=== PATIENT | female | born 1935 | race Caucasian/White ===

== ENCOUNTER 2018-04-07 10:40 | Emergency (ER) | payer MEDICARE, BC ==
[2018-04-07 12:15] VITALS: BP 124/58
--- NOTE | 2018-04-07 12:54 | UC ---
General HPI - HPI Summary HPI Summary: 1. slipped and caught self on sunday but injured her L knee then slipped and fell on buttock plus injured her L knee more. 2. rash on both thighs yesterday. today, more spots(R shoulder, L wrist, R buttock/thigh and upper lip). spot on L thigh is streaking. admits to gardening. no hx tick bites. 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 Pain Intensity: 7 Aggravating: knee worse by movement Associated Signs & Symptoms: Negative: Fever - Allergy/Home Medications Allergies/Adverse Reactions: Allergies Allergy/AdvReac Type Severity Reaction Status Date / Time imiquimod [From Kamara] Allergy Rash Verified 04/07/18 12:13 Home Medications: Home Medications Eye Drops For Dry Eyes 1 dose .ROUTE ONCE 04/07/18 [History Confirmed 04/07/18] busPIRone TAB* [Buspar TAB*] 1 tab PO DAILY 04/07/18 [History Confirmed 04/07/18 ] PMH/Surg Hx/FS Hx/Imm Hx - Additional Past Medical History Additional PMH: dry eye Psychological History: Anxiety - Surgical History Surgery Procedure, Year, and Place: hysterectomy - Family History Known Family History: Positive: Unknown - Social History Occupation: Retired Lives: Alone Alcohol Use: Daily Alcohol Amount: 1 glass of wine Substance Use Type: None Smoking Status (MU): Former Smoker - Immunization History Vaccination Up to Date: Yes Review of Systems Constitutional: Negative Skin: Rash Eyes: Negative ENT: Negative Respiratory: Negative Cardiovascular: Negative Gastrointestinal: Negative Genitourinary: Negative Motor: Negative Neurovascular: Negative Musculoskeletal: Other: - L knee pain Neurological: Negative Psychological: Negative Is Patient Immunocompromised?: No All Other Systems Reviewed And Are Negative: Yes Physical Exam Triage Information Reviewed: Yes Appearance: Well-Appearing Vital Signs: Initial Vital Signs Temp 99.7 F 04/07/18 12:03 Pulse 74 04/07/18 12:03 Resp 16 04/07/18 12:03 BP 124/58 04/07/18 12:03 Pulse Ox 98 04/07/18 12:03 Vital Signs Reviewed: Yes Eyes: Positive: Conjunctiva Clear ENT: Positive: Pharynx normal, TMs normal. Negative: Nasal congestion, Nasal drainage Neck: Positive: Supple, Nontender, No Lymphadenopathy Respiratory: Positive: Lungs clear, Normal breath sounds Cardiovascular: Positive: RRR, No Murmur Abdomen Description: Positive: Nontender, No Organomegaly, Soft Bowel Sounds: Positive: Present Musculoskeletal: Positive: Other: - Head, neck and back are all nontender and atraumatic. Left lower extremity hip ankle and foot are atraumatic. Left knee has mild swelling to the lateral aspect along with tenderness but no gross laxity or instability. Active and passive range of motion are intact. There is a small bruise to the left elbow otherwise both upper and right lower extremities are atraumatic with full sensorivascular motor function. Neurological: Positive: Alert Psychological: Positive: Age Appropriate Behavior Skin Exam: Normal, Other - Patient has somewhat circular areas of red rash. The area just above the left knee looks a little vesicular and has some mild streaking. There is a spot on the left dorsal wrist that looks the same. Rest of the areas including the right upper lip, right thigh, right upper arm and right hip area are all pink and mildly raised. None have a bull's-eye appearance. Diagnostics - Radiology No standard instances Radiology Interpretation Completed By: Radiologist - L knee=IMPRESSION: JOINT EFFUSION, NO FRACTURE IS SEEN. Course/Dx - Course Course Of Treatment: Hx and PE d/w Dr Harding who examed pt as well in regards to rash. we agree to check Lyme titer and cbc with f/u pcp tomorrow plus go to ER if worsening. will tx with doxycycline as well. knee effusion but no fx or dislocation. will order walker and ortho f/u. joint not unstable thus will avoid any splint given overlying rash to this joint with streaking. - Differential Dx - Multi-Symptom Provider Diagnoses: Acute pain L knee with effusion. Acute rash with secondary lymphangitis over L knee. Discharge - Sign-Out/Discharge Documenting (check all that apply): Patient Departure - Discharge Plan Condition: Stable Disposition: HOME Prescriptions: DOXYcycline CAP(*) [DOXYcycline 100MG CAP(*)] 100 mg PO BID 10 Days #20 cap Patient Education Materials: Acute Rash (ED), Lymphangitis (ED), Swollen Joint (ED) Referrals: Angelic Dewey [Primary Care Provider] - 1 Day Jacobo Gurrola MD [Medical Doctor] - As Soon As Possible Additional Instructions: FOLLOW UP WITH YOUR PRIMARY CARE-[facility] TOMORROW FOR A RECHECK OF THE RASH. GO TO ER FOR ANY WORSENING OF THE RASH OR FEVER. CALL DR GURROLA -ORTHOPEDICS TOMORROW AND FOLLOW UP SOON POSSIBLE. USE THE WALKER AT ALL TIMES UNTIL CLEARED. TAKE A PROBIOTIC DAILY WHILE ON THE ANTIBIOTICS. - Billing Disposition and Condition Condition: STABLE Disposition: Home
--- NOTE | 2018-04-07 13:29 | RAD ---
INDICATION: Left knee injury. TECHNIQUE: 4 views of the left knee were obtained. FINDINGS: There is medial soft tissue swelling. The bones are normal alignment. There is a moderate joint effusion present. No fracture is seen. Joint spaces appear maintained. IMPRESSION: JOINT EFFUSION, NO FRACTURE IS SEEN.
[2018-04-07] MEDS ORDERED: DOXYcycline CAP(*) 100 MG PO ONE (14:21)
[2018-04-08 10:50] LABS: Hematocrit 41 % (35-47); Hemoglobin 14.1 g/dl (12.0-16.0); Mean Corpuscular HGB Conc 35 g/dl (31-36); Mean Corpuscular Hemoglobin 32 pg (27-31); Mean Corpuscular Volume 93 fL (80-97); Mean Platelet Volume 10.6 um3 (7.4-10.4); Platelet Count 151 10^3/ul (150-450); Red Blood Count 4.35 10^6/ul (4.00-5.40); Red Cell Distribution Width 13 % (10.5-15); White Blood Count 10.5 10^3/ul (3.5-10.8)
[2018-04-08 11:31] LABS: ABS Basophils 0 10^3/ul (0-0.2); ABS Neutrophils 6.2 10^3/ul (1.5-7.7); ABS Neutrophils 8.1 10^3/ul (1.5-7.7); Monocytes % 8 % (0-7)
== END 2018-04-07 14:37 | disposition home or self-care (01) ==
LOC: UCCORT 10:40
DX: M25.562 Pain in left knee (principal); M25.462 Effusion, left knee; W01.0XXA Fall on same level from slipping, tripping and stumbling without subsequent striking against object, initial encounter; Y93.9 Activity, unspecified; Y92.9 Unspecified place or not applicable; R21 Rash and other nonspecific skin eruption; I89.1 Lymphangitis; Z88.8 Allergy status to other drugs, medicaments and biological substances; F41.9 Anxiety disorder, unspecified; Z87.891 Personal history of nicotine dependence
CPT/HCPCS: 36415; 85025; 85060; 86617; 99213; A9270-GY; G0463

== ENCOUNTER 2018-04-25 12:50 | Emergency (ER) | payer MEDICARE, BC ==
--- OUTSIDE RECORDS SUMMARY | 2018-04-25 13:06 | XMS REPORT ---
:1935 External Reference #:[id number] Author Organization [id number] Address [address] [place] [address] [place] [address] Phone [phone] Care Team Providers Name Role Phone JaviddorisAngelic FNP Primary Care Physician Unavailable Payers Type Date Identification Numbers Payment Provider Subscriber Medicare Primary Effective: Policy Number: Medicare Bree Powers 1998 [id number] PayID: [id number] [address] [place] [address] Medigap Part B Expires: 2017 Policy Number: [id number] BS Of JUNIOR Powers PayID: [id number] [address] [place] [address] Medigap Part B Effective: 2018 Policy Number: Tiffanie Powers [id number] PayID: [id number] [address] [address] [place] [address] Problems Description No Information Family History Date Family Member(s) Problem(s) Comments Father Stroke Father Hypertension Mother Hypertension Mother maternal grandmother-rectal cancer Siblings sisters-both with cancer Social History Type Date Description Comments Marital Status Lives With Alone Occupation Retired ETOH Use Drinks 1 Alcoholic Beverage Per Day wine Smoking Patient is a former smoker Recreational Drug Use Denies Drug Use Daily Caffeine Consumes on average 1 cup of regular coffee per day Daily Caffeine Consumes on average 8oz of iced tea per day Daily Caffeine consumes chocolate occasionally Exercise Type/Frequency Exercises regularly walking and yoga Allergies, Adverse Reactions, Alerts Date Description Reaction Status Severity Comments 04/08/2018 Aldara active rash Medications Medication Date Status Form Strength Qnty SIG Indications Ordering Provider Doxycycline Active Capsules 100mg one tablet Unknown Hyclate 000 twice daily for 10 days started 04/07/18 Buspirone HCL Active Tablets 5mg 1 by mouth Unknown 000 daily. Restasis Active Emulsion 0.05% instill 1 Unknown 000 drop in each eye two times daily Avenova Active Solution 0.01% sprays Unknown 000 onto cotton and wipes both lids daily. Systane Active Solution 0.4-0.3% apply Unknown 000 twice daily as needed for dry eyes Multi Vitamin Active Tablets 1 by mouth Unknown Daily 000 every day Bone Strength Active Tablet 1 tab by Unknown Calcium 000 mouth twice daily. Reuma-Art Active Tablets 1 tab by Unknown X-Strenghth For 000 mouth Arthritis twice daily. Probiotic Active Capsules 1 by mouth Unknown 000 every day Biotin Active Tablets 1000mcg 1 tab by Unknown 000 mouth daily Ocuvite Adult Active Capsules 1 by mouth Unknown Formula 000 every day Electro Mix Active 1 drink Unknown Potassium,Magne 000 packet per sium,Calcium day Tumeric/Curcumi Active 750mg 1 by mouth Unknown n 000 daily. [place]-3 Active Capsules 1 cap by Unknown 000 mouth daily Vitamin D-3 Active Tablets 5000Unit take 1 tab Unknown 000 by mouth daily Restfully Sleep Active Tablets 25mg 1 by mouth Unknown 000 at bedtime. Vital Signs Date Vital Result Comment 04/12/2018 Heart Rate 66 /min BP Systolic 114 mmHg BP Diastolic 72 mmHg Respiratory Rate 16 /min Pain Level 1 O2 % BldC Oximetry 98 % 04/08/2018 Heart Rate 75 /min BP Systolic 110 mmHg BP Diastolic 68 mmHg Respiratory Rate 16 /min Pain Level 0 at rest O2 % BldC Oximetry 98 % Results Description No Information Procedures Description No Information Encounters Type Date Location Provider CPT E/M Dx Office Visit 05/28/2012 Lars Dc M.D. 25505 780.4 11:00a [facility] 300.00 Plan of Care Future Appointment(s):05/06/2018 10:30 am - Jacobo Gurrola MD at [facility] AT Mvsepdpg87/17/2018 - Jacobo Gurrola, [id number] Oth spon disrupt of posterior cruciate ligament of left kneeNew Therapy:Physical TherapyFollow up:Follow up: 4 weeks
--- OUTSIDE RECORDS SUMMARY | 2018-04-25 13:06 | XMS REPORT ---
:1935 External Reference #:[id number] Author Organization [facility] Address [address] [address] Phone [phone] Care Team Providers Name Role Phone Carola Deweyricia, ICT BUSINESS ANALYST Care Team Information Pea Viner Mechanic Unavailable Payers Type Date Identification Numbers Payment Provider Subscriber Medicare Primary Policy Number: [id number] Medicare Bree Powers PayID: [id number] [address] [place] [address] [facility] Part B Effective: Policy Number: [facility] Janelle Powers 2012 [id number] PayID: [id number] [address] [address] [place] [phone] Medigap Part B Expires: 2012 Policy Number: [facility] Commercial Bree Powers [id number] Group Number: [id number] [address] [address] PayID: [id number] [place] [phone] Problems Date Description Provider Status Onset: 02/19/2017 Insomnia Digiovanna, Angelic, ICT BUSINESS ANALYST Active Onset: 02/19/2017 Flatulence, eructation and gas pain Digiovanna, Angelic, ICT BUSINESS ANALYST Active Onset: 02/19/2017 History of malignant neoplasm of Digiovanna, Angelic, ICT BUSINESS ANALYST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 Onset: 02/19/2017 Anxiety state Digiovanna, Angelic, ICT BUSINESS ANALYST Active Onset: 02/19/2017 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 Latham Family History Date Family Member(s) Problem(s) Comments General Cancer, Bladder sister #2, dec General Cancer, Breast sister #1 General Cancer, Prostate brother General Tuberculosis sister #1 Social History Type Date Description Comments Marital Status ETOH Use Currently consumes alcohol most days Smoking Patient has never smoked Allergies, Adverse Reactions, Alerts Date Description Reaction Status Severity Comments 02/19/2017 Aldara rash active Medications Medication Date Status Form Strength Qnty SIG Indications Ordering Provider Aleve Active Capsules 220mg 120caps 1 by Digiovanna 018 mouth q12 , hours as Angelic, needed ICT BUSINESS ANALYST for pain Systane Active Solution 0.4-0.3% 10ml Apply Digiovanna 018 twice , daily as Angelic, needed ICT BUSINESS ANALYST for dry eyes Tumeric Active 750mg 1 po qd Digiovanna 018 , Angelic, ICT BUSINESS ANALYST Lubricant Eye Active Solution 0.4-0.3% 10ml use 1 Digiovanna Drops 018 drop both , eyes as Angelic, needed ICT BUSINESS ANALYST otc Restasis Active Emulsion 0.05% 1 drop in Unknown 000 each eye twice a day Multi For Her Active Capsules 1 by Unknown 000 mouth every day Biotin Active Capsules 1mg 1 by Unknown 000 mouth every day Vitamin D3 Active Tablets 1 tab by Unknown 000 mouth every day with meal with meat/fat/ oil with dinner Avenova Active Solution 0.01% one spray Unknown 000 onto cotton and wipe both lids daily Calcium Active Tabs 1 tab by Unknown Bonehealth 000 mouth twice daily Arthritis Active Tablets ER 650mg 1 tab by Unknown Pain Reliever 000 mouth twice daily Probiotic Active Capsules 1 by Unknown 000 mouth every day Ocuvite Adult Active Capsules 1 by Unknown Formula 000 mouth every day [place]-3 Active Capsules 500mg 1 cap by Unknown 000 mouth daily Restfully Active Tablets 25mg 1 tab by Unknown Sleep 000 mouth at bedtime Buspirone HCL Active Tablets 5mg 60tabs Take 1 F41.1 Digiovanna 000 Tablet By , Mouth Angelic, Twice ICT BUSINESS ANALYST Daily Omeprazole Hx Capsules DR 20mg 30caps 1 by R14.1 Digiovanna 017 - mouth , every day Angelic, 018 for 2 ICT BUSINESS ANALYST weeks then as needed R05 Antioxidant Formula - Hx Capsules Unknown 04/08/2018 Zinc - Hx Lozenges Unknown 03/19/2018 Fish Oil - Hx Capsules 500mg 1 by mouth Unknown 04/08/2018 every day Meclizine HCL - Hx Tablets 25mg 1 by mouth Unknown 03/19/2018 three times a day as needed Doxycycline Hyclate - Hx Capsules 100mg 1 by mouth Unknown 04/23/2018 twice a day x 10 days--started 04/07/18--given by Urgent Care Immunizations CPT Code Status Date Vaccine Reaction Lot # [id number] Given 06/01/2017 Flu Vaccine NOS 01695 Given 09/02/2015 Pneumococcal 23 Immunization Adult Or Immunosuppressed Patient 04861 Given 03/01/2000 Pneumococcal 23 Immunization Adult Or OLD RECORDS Immunosuppressed Patient 94071 Refused 03/19/2018 Prevnar 13 Pneumococal Conjugate Vaccine Vital Signs Date Vital Result Comment 04/23/2018 Body Temperature 99.5 F tympanic Weight 95.31 lb Heart Rate 88 /min BP Systolic 94 mmHg BP Diastolic 58 mmHg Respiratory Rate 18 /min Height 63.5 inches 5'3.50" 03/19/18 BMI (Body Mass Index) 16.6 kg/m2 04/09/2018 Body Temperature 97.2 F Weight 96.00 lb Heart Rate 60 /min BP Systolic 122 mmHg BP Diastolic 68 mmHg Height 63.5 inches 5'3.50" 03/19/18 O2 % BldC Oximetry 96 % BMI (Body Mass Index) 16.7 kg/m2 04/08/2018 Body Temperature 99.1 F tympanic Weight 96.38 lb Heart Rate 76 /min BP Systolic 118 mmHg BP Diastolic 64 mmHg Respiratory Rate 16 /min Height 63.5 inches 5'3.50" 03/19/18 BMI (Body Mass Index) 16.8 kg/m2 03/19/2018 Weight 97.00 lb Heart Rate 68 /min BP Systolic 102 mmHg BP Diastolic 58 mmHg Respiratory Rate 18 /min Height 63.5 inches 5'3.50" 03/19/18 BMI (Body Mass Index) 16.9 kg/m2 02/28/2017 Weight 97.00 lb Heart Rate 70 /min BP Systolic 118 mmHg BP Diastolic 72 mmHg Respiratory Rate 13 /min Height 63.5 inches 5'3.50" (02/19/17) BMI (Body Mass Index) 16.9 kg/m2 02/19/2017 Weight 98.00 lb Heart Rate 76 /min BP Systolic 120 mmHg BP Diastolic 64 mmHg Respiratory Rate 18 /min Height 63.5 inches 5'3.50" (02/19/17) BMI (Body Mass Index) 17.1 kg/m2 Results Test Date Test Result H/L Range Note Wound Culture-RL 04/09/2018 Wound Culture SEE NOTE 1 Viral Culture -RL 04/09/2018 Viral Culture SEE NOTE 2 Laboratory test 04/09/2018 Viral Culture SPECIMEN DESCRI> 3 finding Laboratory test 04/09/2018 HSV/VZV Molecular SPECIMEN DESCRI> 4 finding Wound Culture-RL 04/08/2018 Wound Culture SEE NOTE 5 Laboratory test 03/15/2017 Fit (medicare) Negative Negative finding 1 SPECIMEN DESCRIPTION TUBE SITE SPECIAL REQUESTS NONE GRAM STAIN NO WHITE BLOOD CELLS NO BACTERIA CULTURE RESULTS NO GROWTH REPORT STATUS FINAL 04/11/2018 Unless otherwise specified, testing performed by [facility] [address] [place] [address] 2 SPECIMEN DESCRIPTION TUBE SITE SPECIAL REQUESTS NONE CULTURE RESULTS DUPLICATE ORDER. TEST CANCELLED SEE [facility] [id number] PER [place]LET REPORT STATUS FINAL 04/11/2018 Unless otherwise specified, testing performed by [facility] [place] [address] 3 SPECIMEN DESCRIPTION BOIL THIGH SPECIAL REQUESTS NONE CULTURE RESULTS TEST(S) PROCESSED UNDER NEW ENTRY SEE [facility] [id number] PER CHARLET AT 0933 ON [id number] 9 [id number] REPORT STATUS FINAL 04/10/2018 4 SPECIMEN DESCRIPTION BOIL THIGH SPECIAL REQUESTS NONE RESULT NEGATIVE FOR HERPES SIMPLEX VIRUS TYPES 1 AND 2 AND VARICELLA ZOSTER VIRUS DNA. REPORT STATUS FINAL 04/10/2018 5 SPECIMEN DESCRIPTION ABSCESS SPECIAL REQUESTS NONE GRAM STAIN RARE (<1/LPF) WHITE BLOOD CELLS NO BACTERIA CULTURE RESULTS NO GROWTH REPORT STATUS FINAL 04/10/2018 Unless otherwise specified, testing performed by [facility] [address] [place] [address] Procedures Date CPT Code Description Status Comment 08/27/2009 Bone Mineral Density Test Completed [place] 03/18/2002 Colonoscopy Completed Document: 03/18/02 - Colonoscopy Dr. Garcia - painful Encounters Type Date Location Provider CPT E/M Dx Office Visit 04/09/2018 10:30[place] [address] R21 Z68.1 Office Visit 04/08/2018 2:30p [facility] Digiovanna, Angelic, ICT BUSINESS ANALYST 82545 L13.9 Office Visit 03/19/2018 3:00p [facility] Digiovanna, Angelic, ICT BUSINESS ANALYST 68634 F41.1 E55.9 Z68.1 Office Visit 02/28/2017 2:45p [facility] Digiovanna, Angelic, ICT BUSINESS ANALYST 68609 F41.9 Office Visit 02/19/2017 2:00p [facility] Digiovanna, Angelic, ICT BUSINESS ANALYST G0439 Z00.00 G47.00 R14.1 R05 Z86.001 M81.0 Z85.828 F41.9 Z68.1 Plan of Care 04/23/2018 - Angelic Dewey, KODYM70.22 Olecranon bursitis, LEFT elbowComments:Avoid all pressure on L elbowMonitor symptoms and return immediately for any fever, redness or pain in area or if persistent swelling in 1-2 weeksDiscussed possible benefit of aspiration, declines for now.Follow up: PRN as above
--- OUTSIDE RECORDS SUMMARY | 2018-04-25 13:06 | XMS REPORT ---
:1935 External Reference #:[id number] Author Organization [facility] Address [address] [address] Phone [phone] Care Team Providers Name Role Phone Angelic Dewey NP Care Team Information Rig Builder Helper Unavailable Payers Type Date Identification Numbers Payment Provider Subscriber Medicare Primary Policy Number: [id number] Medicare Bree Powers PayID: [id number] [address] [place] [address] Medigap Part B Effective: Policy Number: [place] Janelle Powers 2012 [id number] PayID: [id number] [address] [address] [place] [address] Medigap Part B Expires: 2012 Policy Number: [facility] Janelle Powers [id number] Group Number: [id number] [address] [address] PayID: [id number] [place] [phone] Problems Date Description Provider Status Onset: 02/19/2017 Osteoporosis Angelic Dewey, ART OBJECTS SALESPERSON Active Onset: 02/19/2017 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CarolaAngelic, ART OBJECTS SALESPERSON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 Onset: 02/19/2017 Anxiety state Abad Deweyia, ART OBJECTS SALESPERSON Active Onset: 02/19/2017 History of malignant neoplasm of Digiovanna, Angelic, ART OBJECTS SALESPERSON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 Onset: 02/19/2017 Flatulence, eructation and gas pain Angelic Dewey, ART OBJECTS SALESPERSON Active Onset: 02/19/2017 Insomnia DigiovannaCarolaAngelic, ART OBJECTS SALESPERSON Active Family History Date Family Member(s) Problem(s) Comments [...] Indications Ordering Provider Aleve Active Capsules 220mg 120cap 1 by Digiovanna 018 s mouth q12 , hours as Angelic, needed ART OBJECTS SALESPERSON for pain Systane Active Solution 0.4-0.3% 10ml Apply Digiovanna 018 twice , daily as Angelic, needed ART OBJECTS SALESPERSON for dry eyes Tumeric Active 750mg 1 po qd Digiovanna 018 , Angelic, ART OBJECTS SALESPERSON Lubricant Eye Active Solution 0.4-0.3% 10ml use 1 Digiovanna Drops 018 drop both , eyes as Angelic, needed ART OBJECTS SALESPERSON otc Restasis Active Emulsion 0.05% 1 drop in Unknown 000 each eye twice a day Multi For Her Active Capsules 1 by Unknown 000 mouth every day Biotin Active Capsules 1mg 1 by Unknown 000 mouth every day Vitamin D3 Active Tablets 1 tab by Unknown 000 mouth every day with meal with meat/fat/ oil with dinner Buspirone HCL Active Tablets 5mg 60tabs Take 1 F41.1 Digiovanna 000 Tablet By , Mouth Angelic, Twice ART OBJECTS SALESPERSON Daily Doxycycline Active Capsules 100mg 1 by Unknown Hyclate 000 mouth twice a day x 10 days--sta rted 04/07/18-- given by Urgent Care Avenova Active Solution 0.01% one spray Unknown 000 onto cotton and wipe both lids daily Calcium Active Tabs 1 tab by Unknown Bonehealth 000 mouth twice daily Arthritis Pain Active Tablets ER 650mg 1 tab by Unknown Reliever 000 mouth twice daily Probiotic Active Capsules 1 by Unknown 000 mouth every day Ocuvite Adult Active Capsules 1 by Unknown Formula 000 mouth every day [place]-3 Active Capsules 500mg 1 cap by Unknown 000 mouth daily Restfully Active Tablets 25mg 1 tab by Unknown Sleep 000 mouth at bedtime Omeprazole Hx Capsules DR 20mg 30caps 1 by R14.1 Digiovanna 017 - mouth , every day Angelic, 018 for 2 ART OBJECTS SALESPERSON weeks then as needed R05 Antioxidant Formula - Hx Capsules Unknown 04/08/2018 Zinc - Hx Lozenges Unknown 03/19/2018 Fish Oil - Hx Capsules 500mg 1 by mouth Unknown 04/08/2018 every day Meclizine HCL - Hx Tablets 25mg 1 by mouth Unknown 03/19/2018 three times a day as needed Immunizations CPT Code Status Date Vaccine Reaction Lot # [id number] Given 06/01/2017 Flu Vaccine NOS 39624 Given 09/02/2015 Pneumococcal 23 Immunization Adult Or Immunosuppressed Patient 14218 Given 03/01/2000 Pneumococcal 23 Immunization Adult Or OLD RECORDS Immunosuppressed Patient 53993 Refused 03/19/2018 Prevnar 13 Pneumococal Conjugate Vaccine Vital Signs Date Vital Result Comment 04/08/2018 Body Temperature 99.1 F tympanic Weight [...] Test Date Test Result H/L Range Note Laboratory test finding 03/15/2017 Fit (medicare) Negative Negative Procedures Date CPT Code Description Status Comment 08/27/2009 Bone Mineral Density Test Completed [place] 03/18/2002 Colonoscopy Completed Document: 03/18/02 - Colonoscopy Dr. Garcia - painful Encounters Type Date Location Provider CPT E/M Dx Office Visit 03/19/2018 3:00p [facility] Angelic Dewey, ART OBJECTS SALESPERSON 29912 F41.1 E55.9 Z68.1 Office Visit 02/28/2017 2:45p [facility] Angelic Dewey, ART OBJECTS SALESPERSON 36109 F41.9 Office Visit 02/19/2017 2:00p [facility] Angelic Dewey, ART OBJECTS SALESPERSON G0439 Z00.00 G47.00 R14.1 R05 Z86.001 M81.0 Z85.828 F41.9 Z68.1 Plan of Care Future Appointment(s):04/09/2018 10:30 am - Barrera Givens MD at [facility]/08/2018 - Agnelic Dewey NPL13.9 Bullous disorder, unspecifiedComments:Will notify of culture result.Continue Doxycycline for nowWill refer for ID consult.Referral:Barrera Givens MD, Infectious DiseasesFollow up:PRN pending culture result
--- OUTSIDE RECORDS SUMMARY | 2018-04-25 13:06 | XMS REPORT ---
:1935 External Reference #:[id number] Author Organization [employer] Address [address] [place] [address] [place] [address] Phone [phone] Care Team Providers Name Role Phone JaviddorisAngelic FNP Primary Care Physician Unavailable Payers Type Date Identification Numbers Payment Provider Subscriber Medicare Primary Effective: Policy Number: Medicare Bree Powers 2000 [id number] PayID: [id number] [address] [place] [address] Medigap Part B Expires: 2017 Policy Number: [id number] BS Of JUNIOR Powers PayID: [id number] [address] [address] Medigap Part B Effective: 2018 Policy Number: Tiffanie Powers [id number] PayID: [id number] [address] [address] [place] [address] Problems Description No Information Family History Date [...] 1 by mouth Unknown n 000 daily. [place]-3 Active Capsules 1 cap by Unknown 000 mouth daily Vitamin D-3 Active Tablets 5000Unit take 1 tab Unknown 000 by mouth daily Restfully Sleep Active Tablets 25mg 1 by mouth Unknown 000 at bedtime. Vital Signs Date Vital Result Comment 04/08/2018 Heart Rate 75 /min BP Systolic 110 mmHg BP Diastolic 68 mmHg Respiratory Rate 16 /min Pain Level 0 at rest O2 % BldC Oximetry 98 % Results Description No Information Procedures Description No Information Encounters Type Date Location Provider CPT E/M Dx Office Visit 04/08/2018 [facility] [place] [address] M23.92 1:15p [facility] [place] Office Visit 05/28/2012 [place]Harvinder Dc M.D. 30966 780.4 11:00a [facility] 300.00 Plan of Care 04/08/2018 - [place]o Gurrol[place], MDM23.92 Unspecified internal derangement of left kneeNew Xrays:MRI Knee Left W/OFollow up:Follow up: after testing is completed
--- OUTSIDE RECORDS SUMMARY | 2018-04-25 13:06 | XMS REPORT ---
:1935 External Reference #:[id number] Author Organization [facility] Address [address] [address] Phone [phone] Care Team Providers Name Role Phone Angelic Dewey, [employer] Care Team Information Dietary Service Aide Unavailable Payers Type Date Identification Numbers Payment Provider Subscriber Medicare Primary Policy Number: [id number] Medicare Bree Powers PayID: [id number] [address] [place] [address] [facility] Part B Effective: Policy Number: [facility] Janelle Powers 2012 [id number] PayID: [id number] [address] [address] [place] [address] Medigap Part B Expires: 2012 Policy Number: [facility] Commercial Bree Powers [id number] Group Number: [id number] [address] [address] PayID: [id number] [place] [address] Problems Date Description Provider Status Onset: 02/19/2017 Osteoporosis Carola Deweyricia, [employer] Active Onset: 02/19/2017 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, Angelic, [employer]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 Onset: 02/19/2017 Anxiety state Carola Deweyricia, [employer] Active Onset: 02/19/2017 History of malignant neoplasm of Digiovanna, Angelic, [employer]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 Onset: 02/19/2017 Flatulence, eructation and gas pain Digiovanna, Angelic, [employer] Active Onset: 02/19/2017 Insomnia Digiovanna, Angelic, [employer] Active Family History Date Family Member(s) Problem(s) [...] mouth q12 , hours as Angelic, needed [employer] for pain Systane Active Solution 0.4-0.3% 10ml Apply Digiovanna 018 twice , daily as Angelic, needed [employer] for dry eyes Tumeric Active 750mg 1 po qd Digiovanna 018 , Angelic, [employer] Lubricant Eye Active Solution 0.4-0.3% 10ml use 1 Digiovanna Drops 018 drop both , eyes as Angelic, needed [employer] otc Restasis Active Emulsion 0.05% 1 drop [...] 000 Tablet By , Mouth Angelic, Twice [employer] Daily Doxycycline Active Capsules 100mg 1 by [...] by Unknown Formula 000 mouth every day [place]-3 Active Capsules 500mg 1 cap by Unknown 000 mouth daily Restfully Active Tablets 25mg 1 tab by Unknown Sleep 000 mouth at bedtime Omeprazole Hx Capsules DR 20mg 30caps 1 by R14.1 Digiovanna 017 - mouth , every day Angelic, 018 for 2 [employer] weeks then as needed R05 Antioxidant Formula - Hx Capsules Unknown 04/08/2018 Zinc - Hx Lozenges Unknown 03/19/2018 Fish Oil - Hx Capsules 500mg 1 by mouth Unknown 04/08/2018 every day Meclizine HCL - Hx Tablets 25mg 1 by mouth Unknown 03/19/2018 three times a day as needed Immunizations CPT Code Status Date Vaccine Reaction Lot # [id number] Given 06/01/2017 Flu Vaccine NOS 15120 Given 09/02/2015 Pneumococcal 23 Immunization Adult Or Immunosuppressed Patient 25287 Given 03/01/2000 Pneumococcal 23 Immunization Adult Or OLD RECORDS Immunosuppressed Patient 72286 Refused 03/19/2018 Prevnar 13 Pneumococal Conjugate Vaccine Vital Signs Date Vital Result Comment 04/09/2018 Body Temperature 97.2 F Weight 96.00 [...] 04/11/2018 Unless otherwise specified, testing performed by [facility] [place] [address] 2 SPECIMEN DESCRIPTION TUBE SITE SPECIAL REQUESTS NONE CULTURE RESULTS DUPLICATE ORDER. TEST CANCELLED SEE [facility] [id number] PER JENNIFER REPORT STATUS FINAL 04/11/2018 Unless otherwise specified, testing performed by [facility] [place] [address] 3 SPECIMEN DESCRIPTION BOIL THIGH SPECIAL REQUESTS NONE CULTURE RESULTS TEST(S) PROCESSED UNDER NEW ENTRY SEE [facility] [id number] PER JENNIFER AT 0933 ON [id number] [phone] REPORT STATUS FINAL 04/10/2018 4 SPECIMEN DESCRIPTION BOIL THIGH SPECIAL REQUESTS NONE RESULT NEGATIVE FOR HERPES SIMPLEX VIRUS TYPES 1 AND 2 AND VARICELLA ZOSTER VIRUS DNA. REPORT STATUS FINAL 04/10/2018 5 SPECIMEN DESCRIPTION ABSCESS SPECIAL REQUESTS NONE GRAM STAIN RARE (<1/LPF) WHITE BLOOD CELLS NO BACTERIA CULTURE RESULTS NO GROWTH REPORT STATUS FINAL 04/10/2018 Unless otherwise specified, testing performed by [facility] [place] [address] Procedures Date CPT Code Description Status Comment 08/27/2009 Bone Mineral Density Test Completed [place] 03/18/2002 Colonoscopy Completed Document: 03/18/02 - Colonoscopy Dr. Garcia - painful Encounters Type Date Location Provider CPT E/M Dx Office Visit 04/09/2018 10:[place] [address] R21 Z68.1 Office Visit 04/08/2018 2:30p [facility] Digiovanna, Angelic, [employer] 52310 L13.9 Office Visit 03/19/2018 3:00p [facility] Digiovanna, Angelic, [employer] 93166 F41.1 E55.9 Z68.1 Office Visit 02/28/2017 2:45p [facility] Digiovanna, Angelic, [employer] 48136 F41.9 Office Visit 02/19/2017 2:00p [facility] Digiovanna, Angelic, [employer] G0439 Z00.00 G47.00 R14.1 R05 Z86.001 M81.0 Z85.828 F41.9 Z68.1 Plan of Care 04/09/2018 - Barrera Givens V, MDR21 Rash and other nonspecific skin eruptionNew Labs:Isabela Screen With Reflex-FCMGCBC with Auto Diff- fcmgComprehensive Met Panel-FCMGCRP (C-Reactive)EsrLyme Igm/Igg AB -RLAerobic Blood Culture-RLZ68.1 Body mass index (BMI) 19.9 or less, adultAllComments: Patient voices understanding of meds and disease processes
[2018-04-25 13:52] VITALS: BP 132/64
--- NOTE | 2018-04-25 14:01 | UC ---
Upper Extremity HPI - HPI Summary HPI Summary: 83 year old female presents for non-traumatic left olecranon bursitis. States she was seen by her PCP on 04/23/2018 for same and had decided on conservative management of symptoms. She called her PCP office today with concern that her elbow was a little more red than before and she was advised to go to ED however elected to come to as she had been evaluated at this facility on 04/07/2018 for left knee pain s/p fall. Denies fever, chills, injury to elbow at time of fall, tenderness to bursa, or pain with ROM. She does note that 2-3 days ago she also developed mild pain and swelling in her left great toe. No history of gout. She also notes that she has been evaluated recently for several non- specific skin eruptions of undetermined etiology including one to the posterior upper left arm near near the elbow however states that this is almost completely healed with out evidence of infection. - History of Current Complaint Stated Complaint: LEFT ELBOW COMPLAINT Time Seen by Provider: 04/25/18 13:19 Hx Obtained From: Patient - See HPI ?: No Onset/Duration: Gradual Onset, Lasting Days Severity Initially: Mild Severity Currently: Mild Aggravating Factor(s): Nothing Alleviating Factor(s): Nothing Associated Signs And Symptoms: Positive: Swelling, Redness. Negative: Bruising , Fever, Weakness, Numbness/Tingling - Risk Factors Septic Arthritis Risk Factor: Negative - Allergies/Home Medications Allergies/Adverse Reactions: Allergies Allergy/AdvReac Type Severity Reaction Status Date / Time imiquimod [From Aldara] Allergy Rash Verified 04/09/18 15:13 Home Medications: Home Medications Cyclosporine 0.05% OPHTH (NF) [Restasis 0.05% OPHTH] 1 drop BOTH EYES BID [History Confirmed 04/25/18] PMH/Surg Hx/FS Hx/Imm Hx - Additional Past Medical History Additional PMH: Noncontributory Previously Healthy: Yes - Surgical History Surgical History: Yes Surgery Procedure, Year, and Place: hysterectomy - Family History Known Family History: Positive: Unknown - Social History Occupation: Retired Lives: Alone Alcohol Use: Daily Alcohol Amount: 1 glass of wine Substance Use Type: None Smoking Status (MU): Former Smoker - Immunization History Vaccination Up to Date: Yes Review of Systems Constitutional: Negative Skin: Other - erythema Respiratory: Negative Cardiovascular: Negative Motor: Negative Neurovascular: Negative Musculoskeletal: Other: - See HPI Is Patient Immunocompromised?: No All Other Systems Reviewed And Are Negative: Yes Physical Exam Triage Information Reviewed: Yes Appearance: Well-Appearing, No Pain Distress, Well-Nourished Vital Signs Reviewed: Yes Respiratory: Positive: Lungs clear, Normal breath sounds, No respiratory distress Cardiovascular: Positive: RRR, No Murmur, Pulses Normal, Brisk Capillary Refill Musculoskeletal Exam: Other - Mild swelling of the left olecranon bursa. Mild erythema immediately superior to swelling. No increased warmth. Nontender to palpation. Musculoskeletal: Positive: Strength Intact, ROM Intact, Other: - Mild tenderness , swelling, and erythema of the PIP left great toe. No lesions or deformity noted. Neurological: Positive: Alert, Other: - Sensation intact distally Skin Exam: Other - Lesion to posterior, distal left upper arm near elbow (see diagram). No tenderness, erythema, induration, fluctuance, or drainage noted. Upper Extremity Course/Dx - Course Course Of Treatment: 83 year old female presents at recommendation of her PCP office for evaluation of non-traumatic left olecranon bursitis. History and physical reveals swollen, non-tender left olecranon bursa with very mild erythema to the skin overlying this area. She has full painless ROM of the elbow. There is a non-infected healing lesion to the posterior aspect of the left elbow. She is afebrile and VSS. She is also reporting mild pain and swelling to left great toe that started around the same time as the bursitis. Based on her history and physical this does not appear to be an infectious bursitis although cannot be fully ruled out without aspiration and analysis of the fluid. With the onset of left great toe pain around the same time as the bursitis inflammation secondary to crystals is a distinct possibility. With her recent history of fall, a traumatic origin is also within the differential however unlikely considering the timinig of the fall and onset of symptoms. This was all discussed at length with the patient. She has follow up already scheduled with her PCP for tomorrow therefore is electing to defer aspiration and analysis of the bursal fluid considering the risk for infection with this procedure. - Differential Dx/Diagnosis Provider Diagnoses: left olecranon bursitits, arthralgia left great toe Discharge - Sign-Out/Discharge Documenting (check all that apply): Patient Departure All imaging exams completed and their final reports reviewed: No Studies - Discharge Plan Condition: Stable Disposition: HOME Patient Education Materials: Elbow Bursitis (ED), Arthralgia (ED) Referrals: Angelic Dewey [Primary Care Provider] - 1 Day (Keep your appointment as scheduled for recheck.) Additional Instructions: Based on your history and exam today I have a low suspicion that your olecranon bursitis is infectious and would not recommend draining it at this time. With your onset of left great toe pain there could be a possibility that this inflammation is related to some crystals such as in gout. I would recommend taking over the counter naproxen (Aleve) 1 tab twice a day for the next 7 days. Be sure to protect the elbow. You may want to obtain an elbow pad to help protect it from accidental injury. Keep you appointment with your primary care provider tomorrow as scheduled. Seek immediate medical attention in the emergency room if you develop fever greater than 100.5 F, have increase pain, redness, swelling of the elbow, or you are no longer able to move the elbow. - Billing Disposition and Condition Condition: STABLE Disposition: Home Images Front/Back of Body, Lg ([place]): 1 - Small < 1 cm circular healing lesion with crusting
== END 2018-04-25 14:14 | disposition home or self-care (01) ==
LOC: UCCORT 12:50
DX: M70.22 Olecranon bursitis, left elbow (principal); M25.572 Pain in left ankle and joints of left foot; Z88.8 Allergy status to other drugs, medicaments and biological substances; Z87.891 Personal history of nicotine dependence
CPT/HCPCS: 99211; G0463